=== PATIENT | female | born 1940 | race Caucasian/White ===

== ENCOUNTER 2018-06-11 00:32 | Outpatient (CLI) | payer MEDICARE, OTHER, SELFPAY ==
--- NOTE | 2018-06-11 09:48 | DI.US_ITS ---
SYMPTOM/DIAGNOSIS: CAROTID BRUIT, R09.89 BILATERAL DUPLEX CAROTID ULTRASOUND: 06/11/18 Duplex evaluation of the carotid circulation was performed according to the usual protocol. There is antegrade vertebral flow on the right and minimally by directional vertebral flow on the left. There is minimal visible atheromatous plaque in the carotid bulbs bilaterally. Flow velocities in common internal and external carotid arteries are within normal limits bilaterally. CONCLUSION: No evidence of a hemodynamically significant carotid stenosis. The previous examination of 03/20/11 showed bilateral antegrade vertebral flow and on today's examination there is minimally bi-directional left vertebral flow.
== END 2018-06-11 00:52 ==
PROVIDERS: PCP Nurse Practitioner Family; Visit Provider Nurse Practitioner Family
DX: R09.89 Other specified symptoms and signs involving the circulatory and respiratory systems (principal)
CPT/HCPCS: 93880

== ENCOUNTER 2021-08-07 01:46 | Outpatient (CLI) | payer MEDICARE, SELFPAY ==
[2021-08-07 08:38] VITALS: BP 142/77; PULSE 86; RESP 16; TEMP 36.8; O2SAT 98
[2021-08-07 09:07] VITALS: BP 143/88; PULSE 81; RESP 16; TEMP 36.6; O2SAT 98
[2021-08-07 09:32] VITALS: BP 134/76; PULSE 65; RESP 16; TEMP 36.6; O2SAT 96
[2021-08-07 10:32] VITALS: BP 142/79; PULSE 64; RESP 18; TEMP 36.8; O2SAT 96
== END 2021-08-07 01:47 | disposition home or self-care (01) ==
LOC: INF 01:49
PROVIDERS: PCP Nurse Practitioner Family; Visit Provider Family Medicine
DX: U07.1 COVID-19 (principal); R53.83 Other fatigue; R06.82 Tachypnea, not elsewhere classified
CPT/HCPCS: 96365; Q0047

== ENCOUNTER 2022-11-29 00:49 | Outpatient (CLI) | payer MEDICARE, SELFPAY ==
--- NOTE | 2022-11-29 08:33 | DI.RAD_ITS ---
Exam(s) XR ANKLE LT COMPLETE EXAM: XR ANKLE LT COMPLETE CLINICAL HISTORY: LT ANKLE PAIN,M25.572,SPRAIN,SWELLING,? FX. TECHNIQUE: 2D digital imaging was performed. COMPARISON: No exams were available for comparison FINDINGS: 3 views There is soft tissue swelling, more so laterally. No evidence of acute fracture or widening of the a nkle mortise. Talar dome un remarkable. No inferior calcaneal spur. No degenerative changes. No t arsal coalition evident. IMPRESSION: No significant osseous findings. Mild soft tissue swelling laterally. DATA REPOSITORY: RADIATION DOSE DELIVERED:
--- NOTE | 2022-11-29 08:34 | DI.RAD_ITS ---
Exam(s) XR FOOT LT COMPLETE EXAM: XR FOOT LT COMPLETE CLINICAL HISTORY: SPRAIN, PAIN,SWELLING,M25.572,? FX. TECHNIQUE: 2D digital imaging was performed. COMPARISON: No exams were available for comparison FINDINGS: 3 views There is no evidence of acute fracture nor diastasis of the Lisfranc joint. No obvious degenerative changes. No osseous lesions. No erosions. No pes planus. No inferior calcaneal spur. IMPRESSION: No significant osseous findings. DATA REPOSITORY: RADIATION DOSE DELIVERED:
== END 2022-11-29 01:09 ==
LOC: DI 00:50
PROVIDERS: PCP Nurse Practitioner Family; Visit Provider Nurse Practitioner Family
DX: M25.572 Pain in left ankle and joints of left foot (principal)
CPT/HCPCS: 73610; 73630

== ENCOUNTER 2023-05-16 11:52 | Outpatient (REF) | payer MEDICARE, SELFPAY ==
--- NOTE | 2023-05-16 11:20 | SKI_PTH ---
PATIENT: Jewell Finley LOC: [facility] U#:[id number] AGE/SX: 82/F ROOM: RE05/16/[address]: Chavo Block DO : 1940 BED: DIS: 05/16/2023 SPEC #: [id number] RECD: 05/16/23 16:39 STATUS: RIANNA REQ #: [id number] IZABELLA: 05/16/23 11:[address]: Chavo Block DEPT: Surgical Specimen RECD BY: Yi Mcdonnell ENTERED: 05/16/23 16:40 SP TYPE: SKI OTHR DR: Shelby Pradhan Tissues: 1 - SKIN BIOPSY(SHAVE/PUNCH) Procedures: SKIN LEVEL 4 Comments: [id number]
== END 2023-05-16 11:53 | disposition home or self-care (01) ==
LOC: LBN 11:52
PROVIDERS: PCP Nurse Practitioner Family; Visit Provider Otolaryngology Otolaryngology/Facial Plastic Surgery
DX: L82.0 Inflamed seborrheic keratosis (principal)
CPT/HCPCS: 88305

== ENCOUNTER 2024-03-25 15:52 | Outpatient (CLI) | payer MEDICARE, SELFPAY ==
--- OUTSIDE RECORDS SUMMARY | 2024-03-25 15:56 | XMS_ITS | Clinical Summary ---
Author Organization [facility] Address [address] [place] [address] Care Team Providers Care Svp Programmatic Tv Name Role Phone Shelby Pradhan ADJUSTMENT SUPERVISOR Primary Care Provider [phone] Social History Tobacco Use Types Packs/Day Years Used Date Smoking Tobacco: Never Assessed Sex and Gender Information Value Date Recorded Sex Assigned at Not on file Gender Identity Not on file Sexual Orientation Not on file Plan of Treatment Health Maintenance Due Date Last Done Comments RSV Immunization ( o r 60+ Years) (1 - 1-dose 60+ series) 2000 Fall Risk Screening 2005 COVID-19 Vaccine ( season) 2023 Care Teams Svp Programmatic Tv Relationship Specialty Start Date End Date Shelby Pradhan, ADJUSTMENT SUPERVISOR [address] [place] [address] PCP - General 04/27/23
--- OUTSIDE RECORDS SUMMARY | 2024-03-25 15:56 | XMS_ITS | Encounter Summary ---
Author Organization [facility] Address [address] [place] [address] Care Team Providers Care Supervisor Shaving And Splitting Name Role Phone Unavailable Primary Care Provider Unavailabl e Encounter Details Date Type Department Care Team (Late st Contact Info) Description 06/28/2005 Results Only [facility] [place] conversion [address] [place] [address] Abby Tinooc NP [facility] [address] [place], [place] [address] Social History Tobacco Use Types Packs/Day Years Used Date Smoking Tobacco: Never Assessed Sex and Gender Information Value Date Recorded Sex Assigned at Not on file Gender Identity Not on file Sexual Orientation Not on file documented as of this encounter Plan of Treatment Not on file documented as of this encounter Procedures Procedure Name Priority Date/Time Associated Diagnosis Comments CYTOPATHOLOGY Routine 06/28/2005 0:00 EST documented in this encounter Results * CYTOPATHOLOGY (06/28/2005 0:00 EST) Pathology Report: CYTOPATHOLOGY REPORT Reports generated via electronic interface contain original data; however they are lacking the format of the original report. Caution should be taken when reading/interpreti ng unformatted reports. Name: ? CEDRIC FINLEY ? Accession #: ? [id number] : ? 1940 (Age: 64) ??F ?Collect Date: ? 06/28/2005 Location: ? [facility] ? Receive Date: ? 07/02/2005 Provider: ?ABBY TINOCO OIL REFINERY PROCESS TECHNICIAN Copy to: ? Specimen/Source: ?ThinPrep Pap Test, Cervix/Endocervix, processed on PWAPrep Imaging System, with manual evaluation Last Menstrual Period: ? 14 years ? SPECIMEN ADEQUACY ? Unsatisfactory for Evaluation, - insufficient numbers of squamous epithelial cells (less than 10% of expected cellularity) GENERAL CATEGORIZATION ? Specimen processed and examined, but unsatisfactory for evaluation of epithelial abnormality. Recommend repeat Pap test or further follow up, as clinically indicated. ? Document reviewed and electronically signed by: ? FABIEN Mendoza(ASCP) ? Report Date: ??07/05/2005 09:18 End of Report KANIKA ALFRED 06/28/2005 07/02/2005 Abby Tinoco NP PATHOLOGY ORDERABLES [facility] ALFR[facility] [address] [place] [address] documented in this encounter Visit Diagnoses Not on filedocumented in this encounter
--- OUTSIDE RECORDS SUMMARY | 2024-03-25 15:56 | XMS_ITS | Referral Summary ---
Author Organization [facility] Address [address] [place] [address] Care Team Providers Care Clay Plant Treater Name Role Phone Shelby Pradhan PERSONNEL WORKER Primary Care Provider [phone] Social History Tobacco Use Types Packs/Day Years Used Date Smoking Tobacco: Never Assessed Sex and Gender Information Value Date Recorded Sex Assigned at Not on file Gender Identity Not on file Sexual Orientation Not on file Plan of Treatment Not on file Care Teams Clay Plant Treater Relationship Specialty Start Date End Date Shelby Pradhan, PERSONNEL WORKER [address] [place] [address] PCP - General 04/27/23
--- OUTSIDE RECORDS SUMMARY | 2024-03-25 15:56 | XMS_ITS | Encounter Summary ---
Author Organization [facility] Address [address] [place] [address] Care Team Providers Care Diesel Technician Mechanic Name Role Phone Unavailable Primary Care Provider Unavailabl e Encounter Details Date Type Department Care Team (Late st Contact Info) Description 06/26/2012 Results Only [facility] Laboratory Services - [facility] [address] [place] [phone] Gela Castro MD [address] [place], [place] [address] Social History Tobacco Use Types Packs/Day Years Used Date Smoking Tobacco: Never Assessed Sex and Gender Information Value Date Recorded Sex Assigned at Not on file Gender Identity Not on file Sexual Orientation Not on file documented as of this encounter Plan of Treatment Not on file documented as of this encounter Procedures Procedure Name Priority Date/Time Associated Diagnosis Comments SURGICAL PATHOLOGY Routine 06/26/2012 0:00 EST documented in this encounter Results * SURGICAL PATHOLOGY (06/26/2012 0:00 EST) Pathology Report: SURGICAL PATHOLOGY REPORT Reports generated via electronic interface contain original data; however they are lacking the format of the original report. Caution should be taken when reading/interpreti ng unformatted reports. Name: ? HARPREET FINLEY ? Accession #: ? [id number] ? : ? 1940 (Age: 71) ??F ? Collect Date: ? 06/26/2012 ? Location: ? [facility] ? Receive Date: ? 06/27/2012 ? Provider: GELA CASTRO MD Copy to: ? Final Pathologic Diagnosis: ? Skin below eye, left, shave biopsy: - Seborrheic keratosis, pigmented. ?? Document reviewed and electronically signed by: SIS PADGETT MD Report ??Date: 06/30/2012 13:30 By the signature above, the attending physician certifies that he/she has personally conducted a gross and/or microscopic examination of the described specimens and rendered or confirmed the above diagnosis. Specimen(s) Received: ? L eye 7.0 mm Clinical History: ? Lesion below L eye which has enlarged/darkened, raised brown, irregular lesion excised Gross Description: ? Received in formalin labelled Harpreet Finley and lesion below left eye is a 0.6 x 0.5 x 0.3 cm irregular sofia and white mottled granular, friable papule. ??The specimen is submitted intact in a single cassette. End of Report KANIKA ALFRED 06/26/2012 06/27/2012 9:5 5 EST Gela Castro MD PATHOLOGY ORDERABLES KANIKA ALFRED [address] [place] [address] documented in this encounter Visit Diagnoses Not on filedocumented in this encounter
--- OUTSIDE RECORDS SUMMARY | 2024-03-25 15:56 | XMS_ITS | Encounter Summary ---
Author Organization [facility] Address [address] [place] [address] Care Team Providers Care Research & Insights Executive Name Role Phone Unavailable Primary Care Provider Unavailabl e Encounter Details Date Type Department Care Team (Late st Contact Info) Description 05/19/2007 Results Only [facility] conversion [address] [place] [address] Gela Castro MD [address] [place] [address] Social History Tobacco Use Types Packs/Day Years Used Date Smoking Tobacco: Never Assessed Sex and Gender Information Value Date Recorded Sex Assigned at Not on file Gender Identity Not on file Sexual Orientation Not on file documented as of this encounter Plan of Treatment Not on file documented as of this encounter Procedures Procedure Name Priority Date/Time Associated Diagnosis Comments SURGICAL PATHOLOGY Routine 05/19/2007 0:00 EDT documented in this encounter Results * SURGICAL PATHOLOGY (05/19/2007 0:00 EDT) Pathology Report: SURGICAL PATHOLOGY REPORT Reports generated via electronic interface contain original data; however they are lacking the format of the original report. Caution should be taken when reading/interpreting unformatted reports. Name: ? CEDRIC FINLEY ? Accession #: ? [id number] ? : ? 1940 (Age: 66) ??F ? Collect Date: ? 05/19/2007 ? Location: ? [facility] ? Receive Date: ? 05/21/2007 ? Provider: GELA CASTRO MD Copy to: ? Final Pathologic Diagnosis: ? 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 ??See comment. Comment: ? Multiple sections of the biopsy were reviewed. The biopsy has a superficial dermal inflammatory infiltrate and mild epidermal spongiosis. ??These features are most suggestive of mild eczematous dermatitis. ??The pattern of the parakeratosis (scale) also raises the possibility of digitate dermatosis. Correlation with the clinical appearance of the lesion is recommended. ??(Dr. Harper)/[facility] Microscopic Description: ? Sections consist of a minute punch biopsy of skin to the mid reticular dermis. The stratum corneum is slightly thickened by compact orthohyperkeratosis with an eccentric confluent layer of parakeratosis. The epidermis varies to mild degree in thickness and rete architecture. There is mild intercellular edema, particularly beneath the zone of parakeratosis. ??There is exocytosis of a rare lymphomononuclear cell into the epidermis. ??The interface is generally intact. Within the superficial dermis, there is a moderately dense perivascular inflammatory infiltrate. ??The infiltrate is composed primarily of lymphomononuclear cells, although a rare eosinophil is evident. ??Additionally, deeper sections show similar features. ??No fungal organisms are identified on sections prepared with PAS-amylase stain. ??(Dr. Harper)/[facility] Document reviewed and electronically signed by: Delmy Harper MD Report ??Date: 05/26/2007 15:22 By the signature above, the attending physician certifies that he/she has personally conducted a gross and/or microscopic examination of the described specimens and rendered or confirmed the above diagnosis. Specimen(s) Received: ? 2 mm punch bx from recent lesion L thigh Clinical History: ? 1-2 month h/o progressive rash, 0.5 to 1.0 cm raised mildly erythemic and mildly scaly lesion diffusely on extremities, no itching or pain Gross Description: ? Received in formalin labelled [place] and 2 mm punch bx L thigh is a punch biopsy of skin measuring 0.2 cm in diameter and 0.2 cm in thickness. ??The specimen is submitted intact in one cassette. (Dr. Finley)/tmg End of Report KANIKA ALFRED 05/19/2007 05/21/2007 22: 07 EDT Gela Castro MD PATHOLOGY ORDERABLES [facility] [address] [place] [address] documented in this encounter Visit Diagnoses Not on filedocumented in this encounter
--- OUTSIDE RECORDS SUMMARY | 2024-03-25 15:56 | XMS_ITS | Encounter Summary ---
Author Organization [facility] Address [address] [place] [address] Care Team Providers Care Brick Layer Name Role Phone Unavailable Primary Care Provider Unavailabl e Encounter Details Date Type Department Care Team (Late st Contact Info) Description 08/13/2006 Results Only [facility] conversion [address] [place] [address] Abby Tinoco NP [facility] [address] [place], [place] [id number] Social History Tobacco Use Types Packs/Day Years Used Date Smoking Tobacco: Never Assessed Sex and Gender Information Value Date Recorded Sex Assigned at Not on file Gender Identity Not on file Sexual Orientation Not on file documented as of this encounter Plan of Treatment Not on file documented as of this encounter Procedures Procedure Name Priority Date/Time Associated Diagnosis Comments CYTOPATHOLOGY Routine 08/13/2006 0:00 EST documented in this encounter Results * CYTOPATHOLOGY (08/13/2006 0:00 EST) Pathology Report: CYTOPATHOLOGY REPORT Reports generated via electronic interface contain original data; however they are lacking the format of the original report. Caution should be taken when reading/interpreti ng unformatted reports. Name: ? CEDRIC FINLEY ? Accession #: ? [id number] : ? 1940 (Age: 65) ??F ?Collect Date: ? 08/13/2006 Location: ? [facility] ? Receive Date: ? 08/15/2006 Provider: ?ABBY TINOCO SITE LEASING AGENT Copy to: ? Specimen/Source: ?ThinPrep Pap Test, Cervix/Endocervix, processed on [employer] ThinPrep Imaging System, with manual evaluation Last Menstrual Period: ? 15 years ago Hormonal/Contracep tive Status: ? Yes: Vagifem ? SPECIMEN ADEQUACY ? Satisfactory for Evaluation - transformation zone component present GENERAL CATEGORIZATION ? Negative for Intraepithelial Lesion or Malignancy ? Document reviewed and electronically signed by: ? FABIEN Agustin(ASCP) ? Report Date: ??08/18/2006 13:34 End of Report KANIKA ALFRED 08/13/2006 08/15/2006 Abby Tinoco NP PATHOLOGY ORDERABLES [facility] AL[facility] [address] [place] [address] documented in this encounter Visit Diagnoses Not on filedocumented in this encounter
--- OUTSIDE RECORDS SUMMARY | 2024-03-25 15:56 | XMS_ITS | Encounter Summary ---
Author Organization [facility] Address [address] [place] [address] Care Team Providers Care Graphics Edit Technician Name Role Phone Shelby Pradhan STRAWHAT BLOCKING OPERATOR Primary Care Provider [phone] Encounter Details Date Type Department Care Team (Late st Contact Info) Description 05/16/2023 Lab Requisition [facility] Pathology & Laboratory Medicine - [address] [address] Chavo Block, [address] DERAS [address] [place] [phone] Neoplasm of unspecified behavior of bone, soft tissue, and skin Social History Tobacco Use Types Packs/Day Years Used Date Smoking Tobacco: Never Assessed Sex and Gender Information Value Date Recorded Sex Assigned at Not on file Gender Identity Not on file Sexual Orientation Not on file documented as of this encounter Plan of Treatment Not on file documented as of this encounter Procedures Procedure Name Priority Date/Time Associated Diagnosis Comments SURGICAL PATHOLOGY Today 05/16/2023 11 :20 EDT Neoplasm of unspecified behavior of bone, soft tissue, and skin documented in this encounter Results * SURGICAL PATHOLOGY (05/16/2023 11:20 EDT) Note to Patient The following pathology results have been interpreted by your pathologist and may be available to you before your health provider has had the opportunity to review them. Please allow time for your provider to receive these results and explore management options, if applicable. 05/25/2023 16:01 EDT [facility] Final Diagnosis A. SKIN OF UPPER ARM, LEFT, SHAVE BIOPSY: - Seborrheic keratosis, irritated and inflamed. 05/25/2023 16:01 [facility] Attestation By the signature below, the attending physician certifies that they have 1) personally conducted a gross and/or microscopic examination of the described specimen(s), and/or personally interpreted the results of laboratory testing of the described specimen(s), and 2) personally rendered or confirmed the above diagnosis. 05/25/2023 16:01 [facility] at 1601 Clinical History Clinical diagnosis code: D49.2 05/25/2023 16:01 [facility] Gross Description A. Received in formalin labelled with proper patient identification (initials H, M) and left upper arm is a shave biopsy of an irregular lim-sofia to sofia-brown granular, friable papule (1.0 x 1.0 x 0.3 cm). The margin is inked blue, the specimen is quadrisected and entirely submitted in A1-A2. Misa Bonilla 05/17/2023 15:28 05/25/2023 16:01 [facility] Performing Lab [facility] 05/25/2023 16:01 [facility] Scanned Images 05/25/2023 16:01 [facility] Tissue SPECIMEN FROM SKIN / Unknown 05/16/2023 11:20 EDT 05/16/2023 22:27 EDT Chavo Block DO PATHOLOGY ORDER LAURA [facility] [address] [place] [address] documented in this encounter Visit Diagnoses Diagnosis Neoplasm of unspecified behavior of bone, soft tissue, and skin documented in this encounter Care Teams Graphics Edit Technician Relationship Specialty Start Date End Date Shelby Pradhan NP [address] [place] [id number] PCP - General 04/27/23 documented as of this encounter
[2024-03-25 16:17] LABS: Abs Immature Grans 0.01 10^3/uL (0.0-0.06); Absolute Basophil Count 0.05 10^3/uL (0.0-0.2); Absolute Eosinophil Count 0.34 10^3/uL (0.0-0.7); Absolute Lymphocyte Count 1.79 10^3/uL (1.2-3.4); Absolute Monocyte Count 0.64 10^3/uL (0.1-0.8); Absolute Neutrophil Count 2.99 10^3/uL (1.2-6.7); Basophils % 0.9 %; Eosinophils % 5.8 %; HCT 42.7 % (36.0-46.0); HGB 13.9 g/dL (11.2-15.7); Immature Grans % 0.2 %; Lymphocytes % 30.8 %; MCH 32.9 pg (27.0-33.0); MCHC 32.6 % (32.0-36.0); MCV 101 fL (80-95); Neutrophils % 51.3 %; Platelet Count 179 10^3/uL (130-400); RBC 4.22 10^6/uL (3.93-5.22); RDW 12.2 % (11.7-14.6); RDW-SD 45.8 fL; WBC 5.82 10^3/uL (4.4-10.8)
[2024-03-25 17:14] LABS: ALT 17 U/L (14-59); AST 19 U/L (15-37); Alkaline Phosphatase 87 U/L (46-116); Anion Gap 10.3 mmol/L (3-11); BUN 15 mg/dL (7-18); Bilirubin, Total 0.43 mg/dL (0.2-1.0); CO2 26.7 mmol/L (21.0-32.0); CREATININE 0.8 mg/dL (0.55-1.02); Chloride 105 mmol/L (98-107); Estimated GFR 73.06 (mL/min/1.73m2); Glucose 94 mg/dL (74-106); Potassium 4.3 mmol/L (3.5-5.1); Sodium 142 mmol/L (136-145); Total Protein 7.5 g/dL (6.4-8.2)
== END 2024-03-25 15:53 | disposition home or self-care (01) ==
LOC: LBO 15:54
PROVIDERS: PCP Nurse Practitioner Family; Visit Provider Physician Assistant Medical
DX: L03.116 Cellulitis of left lower limb (principal); B95.61 Methicillin susceptible Staphylococcus aureus infection as the cause of diseases classified elsewhere
CPT/HCPCS: 36415; 80053; 85025

== ENCOUNTER 2024-03-25 20:50 | Outpatient (REF) | payer MEDICARE, SELFPAY ==
--- OUTSIDE RECORDS SUMMARY | 2024-03-25 20:58 | XMS_ITS | Encounter Summary ---
Author Organization [facility] Address [address] [place] [address] Care Team Providers Care Maintenance Helper Name Role Phone Unavailable Primary Care Provider Unavailabl e Encounter Details Date Type Department Care Team (Late st Contact Info) Description 05/19/2007 Results Only [facility] conversion [address] [place] [address] Gela Castro MD [address] [place] [address] Social History Tobacco Use Types Packs/Day Years [...] ? CEDRIC FINLEY ? Accession #: ? [id number] ? : ? 1940 (Age: 66) ??F [...] appearance of the lesion is recommended. ??(Dr. Harper)/[facility] Microscopic Description: ? Sections consist of a [...] on sections prepared with PAS-amylase stain. ??(Dr. Harper)/[facility] Document reviewed and electronically signed by: Delmy [...] Gross Description: ? Received in formalin labelled [place] and 2 mm punch bx L thigh is a punch biopsy of skin measuring 0.2 cm in diameter and 0.2 cm in thickness. ??The specimen is submitted intact in one cassette. (Dr. Finley)/tmg End of Report KANIKA ALFRED 05/19/2007 05/21/2007 22: 07 EDT Gela Castro MD PATHOLOGY ORDERABLES [facility] [address] [place] [address] documented in this encounter Visit Diagnoses Not on filedocumented in this encounter
--- OUTSIDE RECORDS SUMMARY | 2024-03-25 20:58 | XMS_ITS | Encounter Summary ---
Author Organization [facility] Address [address] [place] [address] Care Team Providers Care Fairground Operator Name Role Phone Unavailable Primary Care Provider Unavailabl e Encounter Details Date Type Department Care Team (Late st Contact Info) Description 06/28/2005 Results Only [facility] conversion [address] [place] [address] Abby Tinoco NP [facility] [address] [place], [place] [address] Social History Tobacco Use Types Packs/Day Years [...] ? CEDRIC FINLEY ? Accession #: ? [id number] : ? 1940 (Age: 64) ??F ?Collect Date: ? 06/28/2005 Location: ? [facility] ? Receive Date: ? 07/02/2005 Provider: ?ABBY TINOCO MIXING PICKER TENDER Copy to: ? Specimen/Source: ?ThinPrep Pap Test, Cervix/Endocervix, processed on InventalatorPrep Imaging System, with manual evaluation Last Menstrual [...] Tinoco NP PATHOLOGY ORDERABLES KANIKA ALFRED [address] [place] [address] documented in this encounter Visit Diagnoses Not on filedocumented in this encounter
--- OUTSIDE RECORDS SUMMARY | 2024-03-25 20:58 | XMS_ITS | Referral Summary ---
Author Organization [facility] Address [address] [place] [address] Care Team Providers Care Vulcanized Fiber Unit Operator Name Role Phone Shelby Pradhan SCHOOL ADMINISTRATOR Primary Care Provider [phone] Social History Tobacco Use Types Packs/Day Years Used Date Smoking Tobacco: Never Assessed Sex and Gender Information Value Date Recorded Sex Assigned at Not on file Gender Identity Not on file Sexual Orientation Not on file Plan of Treatment Not on file Care Teams Vulcanized Fiber Unit Operator Relationship Specialty Start Date End Date Shelby Pradhan, SCHOOL ADMINISTRATOR [address] [place] [id number] PCP - General 04/27/23
--- OUTSIDE RECORDS SUMMARY | 2024-03-25 20:58 | XMS_ITS | Clinical Summary ---
Author Organization [facility] Address [address] [place] [address] Care Team Providers Care Manager People Name Role Phone Shelby Pradhan SUPPLIER DIVERSITY DIRECTOR Primary Care Provider [phone] Social History Tobacco Use Types Packs/Day Years [...] COVID-19 Vaccine ( season) 2023 Care Teams Manager People Relationship Specialty Start Date End Date Shelby Pradhan, SUPPLIER DIVERSITY DIRECTOR [address] [place] [address] PCP - General 04/27/23
--- OUTSIDE RECORDS SUMMARY | 2024-03-25 20:58 | XMS_ITS | Encounter Summary ---
Author Organization [facility] Address [address] [place] [address] Care Team Providers Care Plumbing Warehouse Helper Name Role Phone Unavailable Primary Care Provider Unavailabl e Encounter Details Date Type Department Care Team (Late st Contact Info) Description 08/13/2006 Results Only [facility] conversion [address] [place] [address] Abby Tinoco NP [facility] [address] [place], [place] [id number] Social History Tobacco Use Types Packs/Day Years [...] ? CEDRIC FINLEY ? Accession #: ? [id number] : ? 1940 (Age: 65) ??F ?Collect Date: ? 08/13/2006 Location: ? [facility] ? Receive Date: ? 08/15/2006 Provider: ?ABBY TINOCO VP MARKETING Copy to: ? Specimen/Source: ?ThinPrep Pap Test, Cervix/Endocervix, processed on [employer] ThinPrep Imaging System, with manual evaluation Last [...] Tinoco NP PATHOLOGY ORDERABLES [facility] [address] [place] [address] documented in this encounter Visit Diagnoses Not on filedocumented in this encounter
--- OUTSIDE RECORDS SUMMARY | 2024-03-25 20:58 | XMS_ITS | Encounter Summary ---
Author Organization [facility] Address [address] [place] [address] Care Team Providers Care Movie Projectionist Name Role Phone Shelby Pradhan SHREDDED FILLER MACHINE WRAPPER LAYER Primary Care Provider [phone] Encounter Details Date Type Department Care Team (Late st Contact Info) Description 05/16/2023 Lab Requisition [facility] Pathology & Laboratory Medicine - [address] [address] Chavo Block, [address] DERAS [address] [place] [address] [phone] Neoplasm of unspecified behavior of bone, soft [...] management options, if applicable. 05/25/2023 16:01 EDT [facility] Final Diagnosis A. SKIN OF UPPER ARM, LEFT, SHAVE BIOPSY: - Seborrheic keratosis, irritated and inflamed. 05/25/2023 16:01 [facility] Attestation By the signature below, the attending physician certifies that they have 1) personally conducted a gross and/or microscopic examination of the described specimen(s), and/or personally interpreted the results of laboratory testing of the described specimen(s), and 2) personally rendered or confirmed the above diagnosis. 05/25/2023 16:01 [facility] at 1601 Clinical History Clinical diagnosis code: D49.2 05/25/2023 16:01 [facility] Gross Description A. Received in formalin labelled with proper patient identification (initials H, M) and left upper arm is a shave biopsy of an irregular lim-sofia to sofia-brown granular, friable papule (1.0 x 1.0 x 0.3 cm). The margin is inked blue, the specimen is quadrisected and entirely submitted in A1-A2. Misa Bonilla 05/17/2023 15:28 05/25/2023 16:01 [facility] Performing Lab [facility] 05/25/2023 16:01 [facility] Scanned Images 05/25/2023 16:01 [facility] Tissue SPECIMEN FROM SKIN / Unknown 05/16/2023 11:20 EDT 05/16/2023 22:27 EDT Chavo Block DO PATHOLOGY ORDER LAURA [facility] [address] [place] [address] documented in this encounter Visit Diagnoses Diagnosis Neoplasm of unspecified behavior of bone, soft tissue, and skin documented in this encounter Care Teams Movie Projectionist Relationship Specialty Start Date End Date Shelby Pradhan NP [address] [place] [id number] PCP - General 04/27/23 documented as of this encounter
--- OUTSIDE RECORDS SUMMARY | 2024-03-25 20:58 | XMS_ITS | Encounter Summary ---
Author Organization [facility] Address [address] [place] [address] Care Team Providers Care Energy Broker Name Role Phone Unavailable Primary Care Provider Unavailabl e Encounter Details Date Type Department Care Team (Late st Contact Info) Description 06/26/2012 Results Only [facility] Services - [facility] ([facility] [address] [place] [address] [id number] Gela Castro MD [address] [place], [place] [id number] Social History Tobacco Use Types Packs/Day Years [...] ? HARPREET FINLEY ? Accession #: ? [id number] ? : ? 1940 (Age: 71) ??F [...] Castro MD PATHOLOGY ORDERABLES KANIKA ALFRED [address] [place] [address] documented in this encounter Visit Diagnoses Not on filedocumented in this encounter
== END 2024-03-25 20:51 | disposition home or self-care (01) ==
LOC: LBN 20:50
PROVIDERS: PCP Nurse Practitioner Family; Visit Provider Physician Assistant Medical
DX: L03.116 Cellulitis of left lower limb (principal)
CPT/HCPCS: 87077; 87070; 87186; 87205

== ENCOUNTER → 2024-04-06 11:02 | Outpatient (BNVA) | payer MEDICARE, SELFPAY | PROVIDERS: PCP Family Medicine; Referring Provider Family Medicine; Visit Provider Podiatrist | DX: L08.1 Erythrasma (principal); B35.3 Tinea pedis; B35.1 Tinea unguium; R25.2 Cramp and spasm | CPT/HCPCS: 99214 ==

== ENCOUNTER → 2024-05-18 11:19 | Outpatient (BNVA) | payer MEDICARE, SELFPAY | PROVIDERS: PCP Family Medicine; Referring Provider Family Medicine; Visit Provider Podiatrist | DX: L08.1 Erythrasma (principal); B35.3 Tinea pedis; B35.1 Tinea unguium | CPT/HCPCS: 99213 ==

== ENCOUNTER → 2024-09-14 10:55 | Outpatient (BNVA) | payer MEDICARE, SELFPAY | PROVIDERS: PCP Family Medicine; Referring Provider Family Medicine; Visit Provider Podiatrist | DX: L98.8 Other specified disorders of the skin and subcutaneous tissue (principal); L08.1 Erythrasma; B35.1 Tinea unguium; B35.3 Tinea pedis; L30.8 Other specified dermatitis | CPT/HCPCS: 11057; 11104 ==

== ENCOUNTER → 2024-09-28 09:50 | Outpatient (BNVA) | payer MEDICARE, SELFPAY | PROVIDERS: PCP Family Medicine; Referring Provider Family Medicine; Visit Provider Podiatrist | DX: L30.8 Other specified dermatitis (principal); I87.2 Venous insufficiency (chronic) (peripheral); L08.1 Erythrasma; B35.1 Tinea unguium; B35.3 Tinea pedis; L98.8 Other specified disorders of the skin and subcutaneous tissue | CPT/HCPCS: 99214 ==

== ENCOUNTER → 2025-01-05 10:50 | Outpatient (BNVA) | payer MEDICARE, SELFPAY | PROVIDERS: PCP Family Medicine; Referring Provider Family Medicine; Visit Provider Podiatrist | DX: L30.9 Dermatitis, unspecified (principal); I87.2 Venous insufficiency (chronic) (peripheral); L98.8 Other specified disorders of the skin and subcutaneous tissue; L08.1 Erythrasma; B35.3 Tinea pedis; B35.1 Tinea unguium | CPT/HCPCS: 99213 ==

== ENCOUNTER 2025-02-21 09:42 | Emergency (ER) | payer MEDICARE, SELFPAY ==
[2025-02-21] VITALS (24 sets, daily range): BP systolic 128–161; BP diastolic 59–79; PULSE 60–86; RESP 13–24; TEMP 36.9; O2SAT 93–97
--- NOTE | 2025-02-21 09:30 | RT.EKG_ITS ---
APPROVED REPORT Exam: Resting ECG Reason for Exam: chest pain Patient Location: E HR:81 bpm ECG Measurements Heart Rate 81 AXIS NM 134 P 95 QRSd 83 QRS 53 QT 363 T -27 QTc 423 Conclusion Sinus rhythm...normal P axis, V-rate 60- 99 Nonspecific repol abnormality, diffuse leads...ST dep, T flat/neg, ant/lat/inf
--- NOTE | 2025-02-21 10:00 | DI.CT_ITS ---
Exam(s) CT CHEST PE CTA EXAM: CT CHEST PE CTA CLINICAL HISTORY: left sided pleuritic chest pain. TECHNIQUE: Imaging Protocol: CT angiography of the chest was performed using pulmonary embolus protocol. Multi planar reconstructions were performed. CONTRAST MATERIAL: Intravenous: Omnipaque 350 Contrast volume: 100 cc COMPARISON: CR CHEST 2 VIEWS PA,LAT from 08/07/2016 FINDINGS: CHEST: PULMONARY ARTERIES: There are no intraluminal filling defects to suggest acute pulmonary emboli. LUNGS: There are small bilateral benign calcified granulomas. There is, however, an area of ground-glass infiltrate surrounding 1 of these calcified granulomas in the right lower lobe, this area of infiltrate measuring 1.7 x 1.5 x 1.3 cm. There is no other similar appearing ground-glass infiltrate nor confluent infiltrate in either lung field and there are no pleural effusions. MEDIASTINUM: There is no hilar nor mediastinal adenopathy. CARDIAC: Heart size is upper normal. There is no pericardial effusion.Caliber of the thoracic aorta is within normal limits. There is no significant shift of the interventricular septum. PARTIALLY VISUALIZED UPPERMOST ABDOMEN: There is no prominent contrast reflux into the intrahepatic IVC. Visualized spleen normal size. No adrenal masses. OSSEOUS: No significant osseous lesions.No fractures.. IMPRESSION: 1. No evidence of acute pulmonary emboli. No evidence of pulmonary infarction.No pleural effusions. 2. However, there is an area of ground-glass infiltrate in the right lower lobe measuring 1.7 x 1.5 x 1.3 cm.. Exhibits a central calcification although this may just be 1 of the multiple granulomas in the lung chen. This ground-glass infiltrate requires appropriate follow-up to rule out neoplasm. Please note that it would be too faint to follow on plain films. Findings called by myself to ER physician 02/13/2025 at 11:58 a.m. RADIATION DOSE DELIVERED: 62.64mGy.cm Total DLP DATA REPOSITORY: All CT scans at this facility are submitted to the National Radiology Data Registry (NRDR) Dose Index Registry (DIR) with the [employer] (ACR). RADIATION OPTIMIZATION: All CT scans at this facility use at least one of these dose optimization techniques: automated exposure control; mA and/or kV adjustment per patient size (includes targeted exams where dose is matched to clinical indication); or iterative reconstruction.
--- NOTE | 2025-02-21 10:02 | W.ED.GENAD ---
Discharge Plan Disposition Patient Disposition: Home Condition: Stable Discharge Details Clinical Impression: Chest pain Primary Care Provider: Gela Castro V ED Provider: Cody Winkler Home Meds and New Rx's Prescriptions: New levofloxacin 750 mg tablet 750 mg PO DAILY Qty: 5 0RF Continued calcium carbonate 600 mg calcium (1,500 mg) tablet 600 mg PO DAILY biotin 1 tab PO DAILY cholecalciferol (vitamin D3) 50 mcg (2,000 unit) capsule 50 mcg PO DAILY sertraline 50 mg tablet 50 mg PO DAILY Patient Comments: TAKE ONE TABLET BY MOUTH EVERY DAY Discharge Instructions Additional Instructions: Your blood work did not show any concerning findings at this time. The CT showed aan area of inflammation in the right side of your lung. Take the antibiotics as prescribed. You should let your primary care provider know of this CAT scan finding and that you should have a follow-up CAT scan imaging to make sure this is resolved. If you feel more ill or have new symptoms such as persistent vomiting return to the emergency department for reevaluation. HPI General Mode of arrival: ambulatory. Date/Time Provider Initiated Documentation: 02/21/25 09:52. Limitations to Documentation: no limitations. Information obtained by: patient. History of Present Illness 84 year old F presents to the emergency department with the chief complaint of chest pain, described as moderate, Quality is described as sharp, and is localized to the chest. Patient reports no radiation. Patient started experiencing this day(s) (5) and it has been constant. No relieving factors improve symptom(s), Other factors that worsen symptoms (deep breaths) . Patient notes chest pain; denies fever/chills, nausea/vomiting and shortness of breath. Patient did receive the following treatments prior to arrival, none Related Data Home Medications ?Medication ?Instructions ?Recorded ?Confirmed biotin 1 tab PO DAILY 04/01/23 02/21/25 calcium carbonate 600 mg PO DAILY 04/01/23 02/21/25 cholecalciferol (vitamin D3) 50 50 mcg PO DAILY 04/01/23 02/21/25 mcg (2,000 unit) capsule levofloxacin 750 mg tablet 750 mg PO DAILY #5 tabs 02/21/25 sertraline 50 mg tablet 50 mg PO DAILY 02/21/25 02/21/25 Previous Rx's ?Medication ?Instructions ?Recorded levofloxacin 750 mg tablet 750 mg PO DAILY #5 tabs 02/21/25 Allergies Allergy/AdvReac Type Severity Reaction Status Date / Time Penicillins AdvReac Intermediate Swelling/Ed Verified 02/21/25 09:54 symone General Stated Complaint: Chest Pain JONO: 3 Review of Systems All systems reviewed & are unremarkable except as noted in HPI and below Constitutional Constitutional: Denies chills, Denies fever(s) and Denies weakness Cardiovascular Cardiovascular: Reports chest pain and Denies dyspnea Respiratory Respiratory: Denies cough and Denies dyspnea Gastrointestinal Gastrointestinal: Denies abdominal pain, Denies nausea and Denies vomiting Neurologic Neurologic: Denies weakness Exam Const General: no acute distress Orientation: alert HENMT Head: normal to inspection Ears: external ears normal General nose exam: external nose normal Mouth: moist mucous membranes Eyes General: appearance normal, both eyes and all related structures Neck Neck: normal visual inspection Chest Chest: normal inspection of the chest Resp Effort & Inspection: normal respiratory effort and able to speak in complete sentences Auscultation: clear to auscultation bilaterally Cardio Jugular venous pressure: no JVD Rate: regular rate Heart Sounds: no murmurs Skin General skin exam: no rashes or lesions noted Neuro General: patient alert and patient oriented x3 Extrem General: normal to inspection Psych Mental Status: mental status grossly normal Course Vital Signs Vital signs: Vital Signs Temperature 36.9 C 02/21/25 09:47 Pulse 84 02/21/25 09:47 Respiratory Rate 19 02/21/25 09:47 Blood Pressure 161/79 H 02/21/25 09:47 Pulse Oximetry 96 02/21/25 09:47 Temperature 36.9 C 02/21/25 09:47 Pulse 84 02/21/25 09:47 Respiratory Rate 16 02/21/25 09:56 Respiratory Effort Normal, Non-Labored 02/21/25 09:56 Respiratory Depth Normal 02/21/25 09:56 Respiratory Pattern Normal 02/21/25 09:56 Blood Pressure 161/79 H 02/21/25 09:47 Blood Pressure Position Sitting 02/21/25 09:47 Pulse Oximetry 96 02/21/25 09:47 Oxygen Delivery Method Room Air 02/21/25 09:47 Oxygen Flow Rate 0 02/21/25 09:47 Pain Level 0 02/21/25 09:56 Medical Decision Making 84-year-old female comes in with 5 days of left-sided chest pain she states happens when she takes a deep breath then. She denies any pain with exertion, no diaphoresis, no vomiting. She is well-appearing. She has reproducible tenderness over the anterior left-sided chest wall without visible palpable deformities. She is clear lung sounds, no JVD, no leg swelling. Given the pleuritic nature of the pain I feel it is unlikely ACS but will check troponins. She has no tearing back pain and has equal peripheral pulses so I doubt dissection. No abdominal tenderness. Given the pleuritic nature of the pain as well we will obtain a CTA to evaluate for possible PE and less likely entities such as pneumothorax Labs unremarkable, CT shows no concerning findings other than a right lower lobe possible infiltrate. Nothing on the left side. Patient is stable and appears well. Given reassuring workup I feel she is stable for discharge. I would not put her on antibiotics to treat the possible infiltrate and I advise she needs to have a follow-up CT with her PCP to make sure this is resolved. Return precautions given Differential Diagnosis Differential Diagnosis: Pleurisy, chest wall pain, NSTEMI, PE Medical Records Medical records reviewed: Yes I reviewed the patient's medical records. Lab Data Lab results reviewed: Yes I reviewed the patient's lab results. ECG Data Attestation: I personally reviewed and interpreted this ECG (s) as follows: Prior ECG tracings: not available for review Interpretation: Sinus rhythm, rate of 81, no STEMI PFSH All Active Problems (Updated 02/21/25 @ 12:18 by Cody Winkler MD) Chest pain (Acute) Venous (peripheral) insufficiency (Acute) Skin lesion (Acute) Onychomycosis (Acute) Tinea pedis (Acute) Erythrasma (Acute) Medical History Arthralgia of ankle Hx of pulmonary embolus Sleep disorder History of depression Carotid bruit COPD (chronic obstructive pulmonary disease) Raynauds disease Disorder of rotator cuff Sleeping difficulties Biceps tendinitis COVID-19 Pain, joint, ankle, left Osteopenia Nevus Cellulitis Social History Smoking/Tobacco Use Status: Never Smoking risk assessment performed?: Yes Alcohol Intake: current Alcohol Intake frequency: a few times a week Alcohol type: beer Drug use: Never Substance use type: does not use PAWSS Have you Been Recently Intoxicated or Drunk Within the Last 30 days?: No Have you Ever Experienced Previous Episodes of Alcohol Withdrawal?: No Have you ever Experienced Withdrawal Seizures?: No Have you ever Experienced Delirium Tremens(DT)s?: No Have you ever undergone Alcohol Rehabilitation Treatment (i.e, inpt ot outpatient treatment programs)?: No Have you ever Experienced Blackouts?: No Have you ever Combined Alcohol with other Downers within the last 90 days?: No Have you ever Combined Alcohol with any other Substance of Abuse during the last 90 days?: No Positive Blood Alcohol level on Presentation? [PCS.BAL]: No Evidence of Increased Autonomic Activity (i.e. HR>120, tremor, sweating, agitation, nausea)?: No Result: 0
[2025-02-21 10:18] LABS: Abs Immature Grans 0.01 10^3/uL (0.0-0.06); HCT 40.9 % (36.0-46.0); HGB 13.6 g/dL (11.2-15.7); Immature Grans % 0.2 %; MCH 32.4 pg (27.0-33.0); MCHC 33.3 % (32.0-36.0); MCV 97 fL (80-95); MPV 9.2 fL (8.0-11.0); Platelet Count 192 10^3/uL (130-400); RBC 4.20 10^6/uL (3.93-5.22); RDW 12.0 % (11.7-14.6); RDW-SD 43.2 fL; WBC 6.06 10^3/uL (4.4-10.8)
[2025-02-21 10:40] LABS: INR 1.0 (0.9-1.1); PTT Activated 26.5 sec (20.6-30.2); Prothrombin Time 10.3 sec (9.1-11.1)
[2025-02-21 10:47] LABS: ALT 23 U/L (14-59); AST 20 U/L (15-37); Albumin 3.6 g/dL (3.4-5.0); Alkaline Phosphatase 99 U/L (46-116); Anion Gap 10.3 mmol/L (3-11); BUN 13 mg/dL (7-18); Bilirubin, Total 0.3 mg/dL (0.2-1.0); CO2 27.7 mmol/L (21.0-32.0); Calcium 9.0 mg/dL (8.5-10.1); Chloride 101 mmol/L (98-107); Estimated GFR 63.04 (mL/min/1.73m2); Glucose 165 mg/dL (74-106); Lipase 35 U/L (<78); Magnesium 2.2 mg/dL (1.8-2.4); Potassium 4.0 mmol/L (3.5-5.1); Sodium 139 mmol/L (136-145); Total Protein 7.2 g/dL (6.4-8.2); Troponin I 5 ng/L (<or=51)
[2025-02-21] MEDS: Normal Saline - Diluent 50 ML VIAL IJ (11:32)
[2025-02-21] MEDS: Omnipaque 350 MG/ML 100 ML BTL IJ (11:33)
[2025-02-21 11:55] LABS: Troponin I 4 ng/L (<or=51)
[2025-02-21] MEDS: levoFLOXacin 500 MG, levoFLOXacin 250 MG 750 MG PO (12:31)
== END 2025-02-21 12:39 | disposition home or self-care (01) ==
PROVIDERS: Emergency Provider Emergency Medicine; PCP Family Medicine
DX: R07.9 Chest pain, unspecified (principal); J44.9 Chronic obstructive pulmonary disease, unspecified; Z86.711 Personal history of pulmonary embolism
CPT/HCPCS: 71275; 80053; 83690; 93005; 99285; 83735; 84484; 85025; 85610; 85730; 93010; 99284; J3490

== ENCOUNTER → 2025-05-27 03:33 | Outpatient (CLI) | payer MEDICARE, SELFPAY ==
--- NOTE | 2025-05-27 | DI.CT_ITS ---
Exam(s) CT CHEST W EXAM: CT CHEST W CLINICAL HISTORY: ABNL CT SCAN, R93.89, 3 MO F/U INFILTRATE RT LOWER LOBE. TECHNIQUE: Multi planar reconstructions were performed. CONTRAST MATERIAL: Omnipaque 350; 75 cc COMPARISON: CT CT CHEST PE CTA from 02/21/2025 FINDINGS: CHEST: LUNGS: Scattered benign bilateral calcified granulomas are again noted. In the right lower lobe the previously described ground-glass infiltrate is again noted, essentially unchanged in size from CT scan of 02/21/2025, again measuring 1.7 x 1.5 x 1.3 cm. There are no new additional ground-glass infiltrates in either lung field. No pleural effusions. MEDIASTINUM: No obvious hilar nor mediastinal adenopathy. No subcarinal adenopathy. Visualized thyroid unremarkable. CARDIAC: Heart size is normal. There is no pericardial effusion.Caliber of the thoracic aorta is within normal limits. VISUALIZED UPPER ABDOMEN:There are no significant adrenal masses. No ascites. No splenomegaly. OSSEOUS: No significant osseous lesions.. No fractures. IMPRESSION: 1. Persistent unchanged 17 x 15 x 13 mm ground-glass infiltrate in the superior segment of the right lower lobe, unchanged from CT scan of 02/13/2025. 2. No additional new infiltrates in either lung field and there are no pleural effusions nor obvious intrathoracic adenopathy. 3. Correlation with clinical findings recommended. Lack of growth of this finding does not exclude neoplasm. Close follow-up recommended. RADIATION DOSE DELIVERED: 104.71mGy.cm Total DLP DATA REPOSITORY: All CT scans at this facility are submitted to the National Radiology Data Registry (NRDR) Dose Index Registry (DIR) with the [employer] (ACR). RADIATION OPTIMIZATION: All CT scans at this facility use at least one of these dose optimization techniques: automated exposure control; mA and/or kV adjustment per patient size (includes targeted exams where dose is matched to clinical indication); or iterative reconstruction.
[2025-05-27] MEDS: Omnipaque 350 MG/ML 500 ML BTL-Imaging package IJ (10:21)
[2025-05-27] MEDS: Normal Saline - Diluent 50 ML VIAL IJ (10:21)
[2025-05-27] MEDS: Normal Saline Flush 10 ML SYR IVP (10:21)
== END ==
PROVIDERS: PCP Family Medicine; Visit Provider Nurse Practitioner Family
DX: R91.8 Other nonspecific abnormal finding of lung field (principal)
CPT/HCPCS: 71260; 82565

== ENCOUNTER → 2025-06-27 09:43 | Outpatient (BNVA) | payer MEDICARE, SELFPAY | PROVIDERS: PCP Nurse Practitioner Family; Referring Provider Nurse Practitioner Family; Visit Provider Internal Medicine Pulmonary Disease | DX: R91.1 Solitary pulmonary nodule (principal); R05.9 Cough, unspecified; J06.9 Acute upper respiratory infection, unspecified; Z87.891 Personal history of nicotine dependence | CPT/HCPCS: 99215 ==

== ENCOUNTER 2025-07-01 02:33 | Outpatient (CLI) | payer MEDICARE, SELFPAY ==
[2025-07-01] MEDS: Levalbuterol HFA 15 GM INH 4 PUFF IH (11:34)
[2025-07-01] MEDS: Inhaler, Assist Device 1 EACH MC (11:34)
--- NOTE | 2025-07-05 08:14 | W.PFT ---
Date of service: 07/01/25 Time of Service: 10:13 Pulmonary Function Test Result Indications: Pulmonary nodule Impression 1. Good patient effort was noted. ATS standards for reproducibility were met. 2. Spirometry showed mild-moderate obstructive lung disease with an FEV1 of 79% (1.3 L). FEV1 improved to 88% post-BD 3. Following the administration of a bronchodilator there was not a significant response 4. TLC and RV were elevated, consistent with air trapping 5. DLCO was normal at 82%
== END 2025-07-01 02:34 | disposition home or self-care (01) ==
LOC: RT 02:33
PROVIDERS: PCP Nurse Practitioner Family; Visit Provider Internal Medicine Pulmonary Disease
DX: R91.1 Solitary pulmonary nodule (principal); J44.9 Chronic obstructive pulmonary disease, unspecified; J45.909 Unspecified asthma, uncomplicated; Z87.891 Personal history of nicotine dependence; R05.9 Cough, unspecified
CPT/HCPCS: 94060; 94726; 94729